=== PATIENT | male | born 1960 | race Caucasian/White ===

== ENCOUNTER 2021-09-12 12:31 | Emergency (ER) | payer BC ==
--- NOTE | 2021-09-12 16:15 | EDPHYS ---
Physician Documentation [facility] Name: Edgar Kaye Age: 60 yrs Sex: Male : 1960 Arrival Date: 09/12/2021 Time: 12:34 Bed 10 Private MD: ED Physician Una Myers HPI: 09/12 16:01 This 60 yrs old Male presents to ER via Ambulatory with complaints of Palpitations, jr8 Dizziness. 16:01 The patient presents with a history of heart racing. Context: The symptoms occur at jr8 rest. Onset: The symptoms/episode began/occurred acutely, today. Duration: The patient or guardian reports a single episode, that is still ongoing. Modifying factors: The symptoms are aggravated by nothing. The symptoms are alleviated by nothing. Associated signs and symptoms: The patient has no apparent associated signs or symptoms. Severity of symptoms: At their worst the symptoms were mild in the emergency department the symptoms have resolved. The patient has not experienced similar symptoms in the past. The patient has not recently seen a physician. 16:14 Patient stated that he had sudden onset racing feeling in his chest that lasted for a jr8 few seconds. Called PCP at that time who advised him to go to ED as they could not see him today. Patient now with no symptoms at this time. Has never had this in the past. Historical: - Allergies: 13:08 No Known Allergies; vg1 - Home Meds: 13:08 Aspirin Oral [Active]; Prilosec Oral [Active]; vg1 - PMHx: 13:08 Hypertension; vg1 - PSHx: 13:08 None; vg1 - Immunization history:: Client reports receiving the 2nd dose of the Covid vaccine. - Social history:: Smoking status: Patient denies any tobacco usage or history of. ROS: 16:01 Eyes: Negative for injury, pain, redness, and discharge, ENT: Negative for injury, jr8 pain, and discharge, Neck: Negative for injury, pain, and swelling, Respiratory: Negative for shortness of breath, cough, wheezing, and pleuritic chest pain, Abdomen/GI: Negative for abdominal pain, nausea, vomiting, diarrhea, and constipation, Back: Negative for injury and pain, MS/Extremity: Negative for injury and deformity, Skin: Negative for injury, rash, and discoloration, Neuro: Negative for headache, weakness, numbness, tingling, and seizure. 16:01 Cardiovascular: Positive for palpitations. Exam: 16:01 Constitutional: This is a well developed, well nourished patient who is awake, alert, jr8 and in no acute distress. Neck: Trachea midline, no thyromegaly or masses palpated, and no cervical lymphadenopathy. Supple, full range of motion without nuchal rigidity, or vertebral point tenderness. No Meningismus. Cardiovascular: Regular rate and rhythm with a normal S1 and S2. No gallops, murmurs, or rubs. Normal PMI, no JVD. No pulse deficits. Respiratory: Lungs have equal breath sounds bilaterally, clear to auscultation and percussion. No rales, rhonchi or wheezes noted. No increased work of breathing, no retractions or nasal flaring. Abdomen/GI: Soft, non-tender, with normal bowel sounds. No distension or tympany. No guarding or rebound. No evidence of tenderness throughout. Back: No spinal tenderness. No costovertebral tenderness. Full range of motion. Skin: Warm, dry with normal turgor. Normal color with no rashes, no lesions, and no evidence of cellulitis. MS/ Extremity: Pulses equal, no cyanosis. Neurovascular intact. Full, normal range of motion. Neuro: Awake and alert, GCS 15, oriented to person, place, time, and situation. Cranial nerves II-XII grossly intact. Motor strength 5/5 in all extremities. Sensory grossly intact. Cerebellar exam normal. Normal gait. Vital Signs: 13:05 BP 163 / 89; Pulse 90; Resp 16; Temp 98.2; Pulse Ox 100% ; Weight 88.9 kg; Height 6 ft. vg1 1 in. (185.42 cm); Pain 0/10; 16:04 BP 159 / 88; Pulse 71; Resp 16; Temp 98.0; Pulse Ox 100% ; iw 13:05 Body Mass Index 25.86 (88.90 kg, 185.42 cm) vg1 MDM: 15:53 Patient medically screened. [facility] 16:01 Data reviewed: vital signs, nurses notes, EKG. Data interpreted: Pulse oximetry: on jr8 room air is 100 %. Interpretation: normal. 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 ED course: Patient with complete resolution of symptoms. EKG normal. Vitals stable. Patient stated that since he is feeling much better, would rather just follow up with PCP for blood work. Knows to come back if he were to have change in symptoms or worsening of symptoms. 09/12 16:01 Order name: EKG - Nurse/Tech; Complete Time: 16:01 jr8 Administered Medications: No medications were administered Disposition: 17:06 Co-signature as Attending Physician, Una Myers MD PA/TWIST MAKER's history reviewed, ma2 patient interviewed, and examined. I agree with assessment and care plan and confirm the diagnosis (es) above. Chart complete. Disposition Summary: 09/12/21 16:14 Discharge Ordered Location: Home jr8 Problem: new jr8 Symptoms: have improved jr8 Condition: Stable jr8 Diagnosis - Palpitations jr8 Followup: jr8 - With: Keegan Dhaliwal MD - When: 5 - 6 days - Reason: Recheck today's complaints, Continuance of care, Re-evaluation by your physician Discharge Instructions: - Discharge Summary Sheet jr8 - Palpitations jr8 Forms: - Medication Reconciliation Form jr8 - Thank You Letter jr8 - Antibiotic Education jr8 - Prescription Opioid Use jr8 Signatures: Kayode Saucedo PA PA jr8 Una Myers MD MD ma2 Livia Cid RN RN vg1 Corrections: (The following items were deleted from the chart) 13:09 13:08 Home Meds: lisinopril 20 mg Oral tab 1 tab once daily; vg1 vg1
--- NOTE | 2021-09-12 16:15 | ER ---
Nurse's Notes [facility] Name: Edgar Kaye Age: 60 yrs Sex: Male : 1960 Arrival Date: 09/12/2021 Time: 12:34 Bed 10 Private MD: Diagnosis: Palpitations Presentation: 09/12 13:05 Chief complaint: Patient states: Palpitations and dizziness today around 0945. Denies vg1 NV, chest pain, or SOB. Was told by PCP to come to ED to be evaluated. Coronavirus screen: Vaccine status: Patient reports receiving the 2nd dose of the covid vaccine. Client denies travel out of the [place] in the last 14 days. Ebola Screen: Patient negative for fever greater than or equal to 101.5 degrees Fahrenheit, and additional compatible Ebola Virus Disease symptoms. Initial Sepsis Screen: Does the patient meet any 2 criteria? No. Patient's initial sepsis screen is negative. Does the patient have a suspected source of infection? No. Patient's initial sepsis screen is negative. Risk Assessment: Do you want to hurt yourself or someone else? Patient reports no desire to harm self or others. Onset of symptoms was September 12, 2021. 13:05 Method Of Arrival: Ambulatory vg1 13:05 Acuity: BIB[place] 2 vg1 Triage Assessment: 13:08 General: Appears in no apparent distress. comfortable, Behavior is calm, cooperative. vg1 Pain: Denies pain. Historical: - Allergies: 13:08 No Known Allergies; vg1 - Home Meds: 13:08 Aspirin Oral [Active]; Prilosec Oral [Active]; vg1 - PMHx: 13:08 Hypertension; vg1 - PSHx: 13:08 None; vg1 - Immunization history:: Client reports receiving the 2nd dose of the Covid vaccine. - Social history:: Smoking status: Patient denies any tobacco usage or history of. Screenin:05 Abuse screen: Denies threats or abuse. Denies injuries from another. Nutritional iw screening: No deficits noted. Tuberculosis screening: No symptoms or risk factors identified. Fall Risk None identified. Assessment: 16:04 Reassessment: Patient appears in no apparent distress at this time. Patient and/or iw family updated on plan of care and expected duration. Pain level reassessed. Patient is alert, oriented x 3, equal unlabored respirations, skin warm/dry/pink. Vital Signs: 13:05 BP 163 / 89; Pulse 90; Resp 16; Temp 98.2; Pulse Ox 100% ; Weight 88.9 kg; Height 6 ft. vg1 1 in. (185.42 cm); Pain 0/10; 16:04 BP 159 / 88; Pulse 71; Resp 16; Temp 98.0; Pulse Ox 100% ; iw 13:05 Body Mass Index 25.86 (88.90 kg, 185.42 cm) vg1 ED Course: 12:34 Patient arrived in ED. mr 13:08 Triage completed. vg1 13:08 Arm band placed on. vg1 13:09 EKG completed in triage. Results shown to MD. vg1 15:50 Yasmeen Hamilton, RN is Primary Nurse. iw 15:52 Kayode Saucedo PA is PHCP. jr8 15:52 Una Myers MD is Attending Physician. jr8 16:14 Keegan Dhaliwal MD is Referral Physician. jr8 Administered Medications: No medications were administered Outcome: 16:14 Discharge ordered by MD. jr8 16:18 Patient left the ED. iw Signatures: Italia Chao mr Yasmeen Hamilton, YAJAIRA RN iw Kayode Saucedo PA PA jr8 Livia Cid RN RN vg1 Corrections: (The following items were deleted from the chart) 13:09 13:08 Home Meds: lisinopril 20 mg Oral tab 1 tab once daily; vg1 vg1
[2021-09-12 16:24] VITALS: O2SAT 100
[2021-09-12 16:26] VITALS: BP 159/88; TEMP 98
--- NOTE | 2021-09-14 13:51 | EKG ---
Test Date: 2021-09-12 Test Time: 13:11:25 [place] Labels: MANUEL MEASUREMENT RESULTS: Intervals: Rate: 91 UT: 152 QRSD: 84 QT: 356 QTc: 437 [place]: P: 62 UT: 152 QRS: 41 T: 33 INTERPRETIVE STATEMENTS: Normal sinus rhythm Normal ECG Compared to ECG 06/17/2013 07:06:05 No significant changes Electronically Signed On 09-14-21 13:47:51 DIGITAL MARKETING SPECIALIST by Keegan Dhaliwal
== END 2021-09-12 16:18 | disposition home or self-care (01) ==
LOC: ER 12:31
DX: R00.2 Palpitations (principal); I10 Essential (primary) hypertension; Z79.82 Long term (current) use of aspirin
CPT/HCPCS: 93005; 99281